=== PATIENT | female | born 1990 | race Caucasian/White ===

== ENCOUNTER 2022-06-18 20:12 | Emergency (ER) | payer OTHER ==
[~2022-06-18] VITALS: Ht 162.6 cm; Wt 56.7 kg
[2022-06-18] MEDS ORDERED: HYDROMORPHONE 1 MG/1 ML DISP.SYRIN IV ONE ×2 (20:45→23:15)
[2022-06-18] MEDS ORDERED: ONDANSETRON 4 MG/2 ML VIAL IV ONE (20:45)
[2022-06-18] MEDS ORDERED: IV NORMAL SALINE 1000 ML BAG IV ONE (20:45)
--- NOTE | 2022-06-18 20:45 | NUR ---
Patient has unsteady gait (2 people assist need to walk to restroom). A/O x 3, able to state name, place, and day. Moments of disorientation.
[2022-06-18] MEDS ORDERED: ONDANSETRON 4 MG/2 ML VIAL ONE (20:49)
[2022-06-18] MEDS ORDERED: HYDROMORPHONE 1 MG/1 ML DISP.SYRIN ONE ×2 (20:50→23:11)
--- NOTE | 2022-06-18 20:50 | NUR ---
Michael Junior, at bedside.
[2022-06-18 21:07] LABS: HEMATOCRIT 37.8 % (31.2-41.9); MEAN CORPUSCULAR HEMOGLOBIN 29.5 uug (24.7-32.8); MEAN CORPUSCULAR VOLUME 90.4 fL (75.5-95.3); PLATELET COUNT (AUTO) 390 K/uL (179-408)
[2022-06-18 21:27] LABS: CARBON DIOXIDE 27 mmol/L (21-32); CHLORIDE 110 mmol/L (98-107); CREATININE 0.5 mg/dL (0.6-1.3); GLUCOSE 95 mg/dL (74-106); POTASSIUM 3.3 mmol/L (3.5-5.1); UREA NITROGEN, BLOOD 5 mg/dL (7-18)
[2022-06-18 21:31] LABS: ALANINE AMINOTRANSFERASE 174 U/L (14-59); ALKALINE PHOSPHATASE 110 U/L (50-136); ASPARTATE AMINOTRANSFERASE 116 U/L (15-37); BILIRUBIN,DIRECT 0.2 mg/dL (0.0-0.2); BILIRUBIN,TOTAL 0.2 mg/dL (0.2-1.0); LIPASE 521 U/L (73-393); TOTAL PROTEIN, SERUM 8.3 g/dL (6.4-8.2)
--- NOTE | 2022-06-18 21:50 | NUR ---
Patient's gait is much steadier, one person assist needed. MS improving.
[2022-06-18 21:52] LABS: *BILIRUBIN,URIN NEGATIVE (NEGATIVE); *BLOOD, URINE NEGATIVE (NEGATIVE); *CLARITY,URINE CLEAR (CLEAR); *COLOR,URINE LIGHT YELLOW (YELLOW); *KETONES,URINE NEGATIVE (NEGATIVE); *UROBILINOGEN,URINE 0.2 E.U./dl (NORMAL); LEUKOCYTE ESTERASE ,URINE NEGATIVE (NEGATIVE); NITRITE, URINE NEGATIVE (NEGATIVE); UGLUCOSE NEGATIVE (NEGATIVE)
--- NOTE | 2022-06-18 21:58 | NUR ---
Patient going downstairs for CT scan.
[2022-06-18 22:00] LABS: *AMPHETAMINE, URINE NEGATIVE (NEGATIVE); *CANNABINOID, URINE NEGATIVE (NEGATIVE); *COCCAINE, URINE NEGATIVE (NEGATIVE); *OPIATE, URINE NEGATIVE (NEGATIVE); *PHENCYCLIDINE SCREEN,URINE NEGATIVE (NEGATIVE)
[2022-06-18] MEDS ORDERED: IOHEXOL 300MG/ML 100 ML INFUS..BTL ONE (22:05)
[2022-06-18] MEDS ORDERED: IV NORMAL SALINE 250 ML IV ONE (22:05)
[2022-06-18] MEDS ORDERED: SWABABLE VALVE TRANSFER SET EA MC ONE (22:05)
--- NOTE | 2022-06-18 22:23 | NUR ---
Pt back from CT.
--- NOTE | 2022-06-18 22:26 | NUR ---
PT given a cup of ice, Dr. Ibrahim aware and stated it was okay to do so.
[2022-06-18] MEDS ORDERED: ONDA4TAB5 PO (22:58)
[2022-06-18] MEDS ORDERED: HYDR-4209 PO (22:58)
--- NOTE | 2022-06-18 23:25 | NUR ---
Patient discharged to home in stable condition with boyfriend. A/O x 3. Ambulation improving. NAD noted. All belongings with patient and boyfriend. Written and verbal after care instructions given. Patient verbalizes understanding of instructions. Stressed follow up or return to ER for worsening s/s.
[2022-06-18 23:37] VITALS: BP 119/76
== END 2022-06-18 23:25 | disposition home or self-care (01) ==
LOC: ER 20:29
DX: R10.9 Unspecified abdominal pain (principal); F10.129 Alcohol abuse with intoxication, unspecified; Y90.8 Blood alcohol level of 240 mg/100 ml or more; R74.8 Abnormal levels of other serum enzymes; E87.8 Other disorders of electrolyte and fluid balance, not elsewhere classified
CPT/HCPCS: 80076; 80048; 81003; 83690; 85025; 84702; 36415; 70450; 74177; 99285; 96361; 96374; 96375; 96376; 80320; 80307; J2405; Q9967; J1170 ×2; J7040; A4663; G0480

== ENCOUNTER 2022-07-24 16:23 | Emergency (ER) | payer OTHER ==
[~2022-07-24] VITALS: Ht 167.6 cm; Wt 54.9 kg
[~2022-07-24 16:23] MED LIST: HYDR-4209 PO; ONDA4TAB5 PO
[2022-07-24 17:05] LABS: *BILIRUBIN,URIN NEGATIVE (NEGATIVE); *BLOOD, URINE 1+ (NEGATIVE); *CLARITY,URINE CLEAR (CLEAR); *COLOR,URINE YELLOW (YELLOW); *KETONES,URINE 1+ (NEGATIVE); *UROBILINOGEN,URINE 0.2 E.U./dl (NORMAL); LEUKOCYTE ESTERASE ,URINE NEGATIVE (NEGATIVE); NITRITE, URINE NEGATIVE (NEGATIVE); UGLUCOSE NEGATIVE (NEGATIVE)
[2022-07-24 17:10] LABS: WBC,URINE 0-3 /HPF (0-3)
--- NOTE | 2022-07-24 17:10 | NUR ---
[email or web address], medical screening exam in progress
[2022-07-24] MEDS ORDERED: CHLORDIAZEPOXIDE HCL 25 MG CAPSULE PO ONE (17:30)
[2022-07-24] MEDS ORDERED: IV NORMAL SALINE 1000 ML BAG IV ONE (17:30)
[2022-07-24] MEDS ORDERED: ONDANSETRON 4 MG/2 ML VIAL IV ONE (17:30)
[2022-07-24] MEDS ORDERED: FAMOTIDINE. 20 MG/2 ML VIAL IV ONE ×2 (17:30→17:38)
[2022-07-24] MEDS ORDERED: ONDANSETRON 4 MG/2 ML VIAL ONE (17:37)
[2022-07-24] MEDS ORDERED: CHLORDIAZEPOXIDE HCL 25 MG CAPSULE ONE (17:38)
[2022-07-24 17:44] LABS: *URINE HCG, QUAL NEGATIVE (NEGATIVE)
[2022-07-24 18:01] LABS: HEMATOCRIT 37.1 % (31.2-41.9); MEAN CORPUSCULAR HEMOGLOBIN 29.4 uug (24.7-32.8); MEAN CORPUSCULAR VOLUME 88.5 fL (75.5-95.3); PLATELET COUNT (AUTO) 202 K/uL (179-408)
[2022-07-24 18:15] LABS: CARBON DIOXIDE 22 mmol/L (21-32); CHLORIDE 96 mmol/L (98-107); CREATININE 0.7 mg/dL (0.6-1.3); GLUCOSE 137 mg/dL (74-106); POTASSIUM 3.4 mmol/L (3.5-5.1); UREA NITROGEN, BLOOD 6 mg/dL (7-18)
[2022-07-24 18:24] LABS: ALANINE AMINOTRANSFERASE 69 U/L (14-59); ALKALINE PHOSPHATASE 107 U/L (50-136); ASPARTATE AMINOTRANSFERASE 80 U/L (15-37); BILIRUBIN,DIRECT 0.1 mg/dL (0.0-0.2); BILIRUBIN,TOTAL 0.3 mg/dL (0.2-1.0); TOTAL PROTEIN, SERUM 9.3 g/dL (6.4-8.2)
[2022-07-24] MEDS ORDERED: POTASSIUM CHLORIDE 40 MEQ in IV D5/ 0.9% NACL 1,000 ML IV PRN (18:30)
[2022-07-24] MEDS ORDERED: SWABABLE VALVE TRANSFER SET EA MC ONE (18:43)
[2022-07-24] MEDS ORDERED: IOHEXOL 300MG/ML 100 ML INFUS..BTL ONE (18:43)
[2022-07-24] MEDS ORDERED: IV NORMAL SALINE 250 ML IV ONE (18:43)
[2022-07-24 18:44] LABS: LIPASE 129 U/L (73-393)
[2022-07-24 19:04] LABS: VENT MODE, VBG room air
--- NOTE | 2022-07-24 19:15 | NUR ---
Patient is still for CT scan, for official results of all these ER diagnostic tests and disposition. Endorsed to 7pm nurse Alonzo.
--- NOTE | 2022-07-24 19:16 | NUR ---
Received report from Kemi KEENE.
--- NOTE | 2022-07-24 20:36 | NUR ---
Lab called, spoke to [facility]. Informed me that Lactid aid is 2.2. notified.
[2022-07-24] MEDS ORDERED: ONDA4TAB5 PO (20:45)
[2022-07-24] MEDS ORDERED: CHLO25CA22 PO (20:45)
--- NOTE | 2022-07-24 21:03 | NUR ---
Patient discharged to home in stable condition. Written and verbal after care instructions given. Patient verbalizes understanding of instructions. Stressed follow up or return to ER for worsening s/s. Patient walked out with steady gait.
[2022-07-24 21:43] VITALS: BP 117/78
== END 2022-07-24 21:03 | disposition home or self-care (01) ==
LOC: ER 16:26
DX: F10.239 Alcohol dependence with withdrawal, unspecified (principal); R10.9 Unspecified abdominal pain; R11.2 Nausea with vomiting, unspecified; E87.6 Hypokalemia; E86.0 Dehydration; R00.0 Tachycardia, unspecified; Z87.440 Personal history of urinary (tract) infections; R73.9 Hyperglycemia, unspecified
CPT/HCPCS: 99285; 74177; 96374; 76700; 71045; 96361; 96375; 80076; 80048; 81001; 84703; 83690; 85025; 85730; 87040 ×2; 84484; 36415; 83605 ×2; 36600; J3490; J2405; Q9967; J7042; J7040; A4663; J3480